=== PATIENT | female | born 1965 | race Caucasian/White ===

== ENCOUNTER 2020-10-31 11:08 | Emergency (ER) | payer OTHER, SELFPAY ==
--- NOTE | 2020-10-31 11:26 | PC.NURSE ---
During telephone triage process pt states she was told to go to ED for wound infection from back surgery approx 30 days ago. Has large incision to her back that is draining and that her doctor told her to be seen in ED. Pt informed she would be more than likely be transferrred to an ED from urgent care as we do not have IV antibiotics. Pt states she will just go there now. pt declines to be seen in urgent care
== END 2020-10-31 11:34 | disposition left against medical advice (07) ==
LOC: EXPBETH 11:15
PROVIDERS: Emergency Provider Nurse Practitioner
DX: Z53.21 Procedure and treatment not carried out due to patient leaving prior to being seen by health care provider (principal)
CPT/HCPCS: 99199

== ENCOUNTER 2022-08-25 14:35 | Emergency (ER) | payer OTHER, SELFPAY ==
[2022-08-25 14:44] VITALS: BP 115/57; PULSE 94; RESP 16; TEMP 36.6; O2SAT 99
--- NOTE | 2022-08-25 14:46 | ED.SKABFB ---
HPI - Skin/Abscess/Foreign Bdy General Chief complaint: Skin/Abscess/Foreign Body Stated complaint: Hives Time Seen by Provider: 08/25/22 14:53 Source: patient Mode of arrival: ambulatory Limitations: no limitations History of Present Illness HPI narrative: 57 y/o female presented for c/o hives to torso and arms and legs for about 3 days. reports possible change to laundry detergent. She denies changes to medication, soap, lotions or foods. Denies lips, tongue, throat swelling or itching, shortness of breath or wheezing. She has been taking Benadryl. Related Data Home Medications Medication Instructions Recorded Confirmed [id number]-[id number]-andblqqq 1 cap DIRECTED 08/25/22 08/25/22 50 mg-300 mg-40 mg capsule clonidine HCl 0.1 mg tablet 0.1 mg DIRECTED 08/25/22 08/25/22 divalproex 125 mg tablet,delayed 125 mg PO DIRECTED 08/25/22 08/25/22 release ferrous sulfate 325 mg (65 mg 325 mg DIRECTED 08/25/22 08/25/22 iron) tablet furosemide 40 mg tablet 40 mg DIRECTED 08/25/22 08/25/22 gabapentin 300 mg capsule 300 mg DIRECTED 08/25/22 08/25/22 hydrocodone 7.5 mg-acetaminophen 1 tablet DIRECTED 08/25/22 08/25/22 325 mg tablet magnesium oxide 400 mg (241.3 mg 400 mg DIRECTED 08/25/22 08/25/22 magnesium) tablet methimazole 5 mg tablet 5 mg DIRECTED 08/25/22 08/25/22 potassium chloride 10 mEq 10 meq PO DIRECTED 08/25/22 08/25/22 tablet,extended release Allergies Allergy/AdvReac Type Severity Reaction Status Date / Time No Known Allergies Allergy Unverified 12/12/18 11:57 Review of Systems Review of Systems: CONSTITUTIONAL: Denies body aches, fever, chills, or sweats. EYES: Denies visual changes, redness, or discharge. ENT: Denies rhinorrhea, congestion CARDIOVASCULAR: Denies chest pain, palpitations, or edema. RESPIRATORY: Denies cough or dyspnea. GASTROINTESTINAL: Denies abdominal pain, nausea, vomiting, or diarrhea. SKIN: per HPI MUSCULOSKELETAL: Denies back pain, joint pain, or myalgia. NEUROLOGIC: Denies headache, numbness, tingling, or weakness. [facility] Past Medical History Medical History (Updated 08/25/22 @ 15:15 by Eva Knox, JOE) Hypertension Comments At time of signature, I have reviewed and agree with nursing past medical, surgical, social and family history unless otherwise noted. Please see nursing chart for further information. There is no relevant family history pertinent to the presenting complaint Exam Narrative: GENERAL: Well-appearing HEAD: Normocephalic, atraumatic. EYES: conjunctivae clear, and EOMI. ENT: Mucous membranes moist. Oropharynx without edema, erythema or lesions. NECK: Supple. No lymphadenopathy CHEST: Clear to auscultation. HEART: Regular rate and rhythm. SKIN: Warm, dry. Urticarial rash noted to trunk and thighs, few scattered lesions to bilateral upper extremities NEURO: Alert and oriented x3. Course Course Emergency Course: Patient is aware of diagnosis, understands and agrees to treatment plan. Anticipatory guidance given. Patient agrees to follow-up as directed and is aware of reasons to seek care at the emergency department. Portions of this record may have been created with voice recognition software Level of Care: Express Care Visit Vital Signs Vital signs: Vital Signs Temperature 97.8 F 08/25/22 14:44 Pulse Rate 94 08/25/22 14:44 Respiratory Rate 16 08/25/22 14:44 Blood Pressure 115/57 L 08/25/22 14:44 Pulse Oximetry 99 08/25/22 14:44 Oxygen Delivery Room Air 08/25/22 14:44 Temperature 97.8 F 08/25/22 14:44 Pulse Rate 94 08/25/22 14:44 Respiratory Rate 16 08/25/22 14:44 Blood Pressure 115/57 L 08/25/22 14:44 Pulse Oximetry 99 08/25/22 14:44 Oxygen Delivery Room Air 08/25/22 14:44 Reviewed MDM - Skin/Abscess/Foreign Bdy MDM Narrative Medical decision making narrative: Advised supportive measures and signs/symptoms to go to the ER. P
== END 2022-08-25 15:08 | disposition home or self-care (01) ==
PROVIDERS: Emergency Provider Nurse Practitioner Family; PCP Internal Medicine
DX: L50.9 Urticaria, unspecified (principal); I10 Essential (primary) hypertension
CPT/HCPCS: 99213; G0463

== ENCOUNTER 2022-08-31 15:18 | Emergency (ER) | payer OTHER, SELFPAY ==
[2022-08-31 15:22] VITALS: BP 134/62; PULSE 117; RESP 16; TEMP 36.4; O2SAT 100
--- NOTE | 2022-08-31 15:46 | ED.SKABFB ---
HPI - Skin/Abscess/Foreign Bdy General Chief complaint: Skin/Abscess/Foreign Body Stated complaint: hives Source: patient and RN notes reviewed History of Present Illness HPI narrative: 37-year-old male presents to urgent care with complaints of generalized hives. Patient states these have been going on for the last 8 days. Patient was seen here last week for the same issue and was placed on a Medrol Dosepak and Pepcid. Patient states she is taking Benadryl at nighttime as directed with no relief. Patient denies any new detergents, soaps, lotions, foods, or meds. Patient reports associated pruritus as well as pain with the hives. Denies any fevers, chills, vomiting, shortness of breath, trouble swallowing or breathing. Some parts of this dictation were generated by voice recognition software and may contain typographical and/or grammatical inaccuracies. Related Data Home Medications Medication Instructions Recorded Confirmed vyxqyhrzio-gbqxwwzayqcba-ggqavukg 1 cap DIRECTED 08/25/22 08/25/22 50 mg-300 mg-40 mg capsule clonidine HCl 0.1 mg tablet 0.1 mg DIRECTED 08/25/22 08/25/22 divalproex 125 mg tablet,delayed 125 mg PO DIRECTED 08/25/22 08/25/22 release ferrous sulfate 325 mg (65 mg 325 mg DIRECTED 08/25/22 08/25/22 iron) tablet furosemide 40 mg tablet 40 mg DIRECTED 08/25/22 08/25/22 gabapentin 300 mg capsule 300 mg DIRECTED 08/25/22 08/25/22 hydrocodone 7.5 mg-acetaminophen 1 tablet DIRECTED 08/25/22 08/25/22 325 mg tablet magnesium oxide 400 mg (241.3 mg 400 mg DIRECTED 08/25/22 08/25/22 magnesium) tablet methimazole 5 mg tablet 5 mg DIRECTED 08/25/22 08/25/22 potassium chloride 10 mEq 10 meq PO DIRECTED 08/25/22 08/25/22 tablet,extended release Allergies Allergy/AdvReac Type Severity Reaction Status Date / Time No Known Allergies Allergy Unverified 12/12/18 11:57 Review of Systems Review of Systems: CONSTITUTIONAL: Denies fever, chills, or sweats. EYES: Denies visual changes, redness, or discharge. ENT: Denies otalgia and sore throat CARDIOVASCULAR: Denies chest pain, palpitations, or edema. RESPIRATORY: Denies cough or dyspnea. GASTROINTESTINAL: Denies abdominal pain, nausea, vomiting, or diarrhea. GENITOURINARY: Denies dysuria or hematuria. SKIN: rash MUSCULOSKELETAL: Denies back pain, joint pain, or myalgia. NEUROLOGIC: Denies headache, numbness, or weakness. [facility] Past Medical History Medical History (Updated 08/31/22 @ 15:48 by Disha Crowder APRN) Hypertension Comments At the time of my signature, I reviewed and agree with the nursing past medical, surgical, social, and family history. There is no relevant family history pertinent to the patient complaint. Exam Narrative: GENERAL: This is a well-nourished, well-developed patient, in no apparent distress. HEAD: normocephalic, atraumatic. EYES: PERRL. Sclera clear/white. Vision is grossly intact. EARS: External ears normal, auditory canals clear and without drainage, TMs normal without perforation. Hearing grossly intact. NOSE: External nose normal with no obvious nasal discharge, nares without redness, no rhinorrhea. THROAT: Mucous membranes moist, posterior pharynx clear. NECK: Neck supple, non-tender without lymphadenopathy, masses or thyromegaly. CARDIOVASCULAR: Regular rate and rhythm without murmurs, gallops, or rubs. RESPIRATORY: Clear to auscultation. Breath sounds equal bilaterally. No wheezes, rales, or rhonchi. GASTROINTESTINAL: Abdomen soft, non-tender, nondistended. Bowel sounds are active. No hepato-splenomegaly, or palpable masses. No guarding. SKIN: Generalized hives and noted to all extremities and trunk. NEURO: awake, alert, and oriented to person, place and time. There were no obvious focal neurologic abnormalities. Course Course Level of Care: Express Care Visit Vital Signs Vital signs: Vital Signs Temperature 97.5 F L 08/31/22 15:22 Pulse Rate 117 H 08/31/22
== END 2022-08-31 15:57 | disposition home or self-care (01) ==
PROVIDERS: Emergency Provider Nurse Practitioner Family; PCP Internal Medicine
DX: L50.9 Urticaria, unspecified (principal); I10 Essential (primary) hypertension
CPT/HCPCS: 99213; G0463

== ENCOUNTER 2024-03-26 18:33 | Emergency (ER) | payer OTHER, SELFPAY ==
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
[2024-03-26 18:41] VITALS: BP 121/56; PULSE 90; RESP 16; TEMP 36.4; O2SAT 100
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
== END 2024-03-26 19:57 | disposition home or self-care (01) ==
PROVIDERS: Emergency Provider Nurse Practitioner
DX: S96.911A Strain of unspecified muscle and tendon at ankle and foot level, right foot, initial encounter (principal); V48.4XXA Person boarding or alighting a car injured in noncollision transport accident, initial encounter; L03.031 Cellulitis of right toe; I10 Essential (primary) hypertension
CPT/HCPCS: 73610; 99213; G0463

== ENCOUNTER 2024-04-11 13:18 | Emergency (ER) | payer OTHER, SELFPAY ==
[2024-04-11 13:38] VITALS: BP 106/58; PULSE 68; RESP 20; TEMP 36.5; O2SAT 98
--- NOTE | 2024-04-11 13:38 | ED.GENADULT ---
HPI - General Adult General Chief complaint: Nausea/Vomiting/Diarrhea Stated complaint: stomach/nausea Time Seen by Provider: 04/11/24 13:56 Source: patient, RN notes reviewed and old records reviewed Mode of arrival: ambulatory Limitations: no limitations History of Present Illness HPI narrative: 59-year-old female presents to the [facility] with complaints of abdominal discomfort, nausea, vomiting and diarrhea. States that she is out of her Zofran. Patient states that she ate at the [employer] and as soon as she left started with some abdominal cramping, nausea, vomiting and diarrhea. All of her symptoms is having improved except for the nausea. Tried calling primary care provider for a refill on her Zofran Denies any abdominal discomfort, pain, back pain, urinary symptoms in clinic Reports that she is tolerating broth and water without issue Related Data Home Medications Medication Instructions Recorded Confirmed [id number]-[id number]-[id number] 1 cap DIRECTED 08/25/22 04/11/24 50 mg-300 mg-40 mg capsule clonidine HCl 0.1 mg tablet 0.1 mg DIRECTED 08/25/22 04/11/24 divalproex 125 mg tablet,delayed 125 mg PO DIRECTED 08/25/22 04/11/24 release ferrous sulfate 325 mg (65 mg 325 mg DIRECTED 08/25/22 04/11/24 iron) tablet furosemide 40 mg tablet 40 mg DIRECTED 08/25/22 04/11/24 gabapentin 300 mg capsule 300 mg DIRECTED 08/25/22 04/11/24 magnesium oxide 400 mg (241.3 mg 400 mg DIRECTED 08/25/22 04/11/24 magnesium) tablet methimazole 5 mg tablet 5 mg DIRECTED 08/25/22 04/11/24 potassium chloride 10 mEq 10 meq PO DIRECTED 08/25/22 04/11/24 tablet,extended release cetirizine 10 mg tablet 10 mg PO DAILY 03/26/24 04/11/24 fluoxetine 20 mg capsule 20 mg PO DAILY 03/26/24 04/11/24 hydroxyzine HCl 25 mg tablet 25 mg PO DAILY 03/26/24 04/11/24 propranolol 20 mg tablet 20 mg PO DAILY 03/26/24 04/11/24 ropinirole 0.25 mg tablet 0.25 mg PO DAILY 03/26/24 04/11/24 Allergies Allergy/AdvReac Type Severity Reaction Status Date / Time amitriptyline Allergy Migraine Verified 04/11/24 13:52 Review of Systems Review of Systems: All systems reviewed & are unremarkable except as noted in HPI and below Constitutional: Constitutional: Reports no additional constitutional complaints Eyes: Eyes: Reports no additional eye complaints ENT: Reports system reviewed and no additional complaints, except as documented Cardiovascular: Cardiovascular: Reports no additional cardiovascular complaints, Denies chest pain and Denies dyspnea Respiratory: Respiratory: Reports no additional respiratory complaints, Denies chest congestion, Denies cough and Denies dyspnea Gastrointestinal: Gastrointestinal: Reports as per HPI, Denies abdominal pain, Reports diarrhea, Reports nausea and Reports vomiting Musculoskeletal: Musculoskeletal: Reports no additional musculoskeletal complaints Integumentary/Breasts: Skin/Breast: Reports system reviewed and no additional complaints, except as docu Neurologic: Reports system reviewed and no additional complaints, except as documented Psychiatric: Psychiatric: Reports no additional psychiatric complaints Allergic/Immunologic: Allergic/Immunologic: Reports no additional allergic/immunologic complaints PMFSH Past Medical History Medical History Chronic back pain Hypertension Surgical History Surgical History History of bariatric surgery History of knee replacement Family History Family History Mother Family history non-contributory Social History Social History Substance use: never Gender identity (if verbalized by the patient): Female Comments At the time of my signature, I reviewed and agree with the nursing past medical, surgical, social,
== END 2024-04-11 14:15 | disposition home or self-care (01) ==
PROVIDERS: Emergency Provider Nurse Practitioner
DX: K52.9 Noninfective gastroenteritis and colitis, unspecified (principal); I10 Essential (primary) hypertension
CPT/HCPCS: 99213; G0463